=== PATIENT | male | born 1980 | race Caucasian/White ===

== ENCOUNTER 2019-07-08 19:14 | Emergency (ER) | payer SELFPAY ==
[~2019-07-08] VITALS: Ht 172.7 cm; Wt 75.0 kg
[2019-07-08 19:16] VITALS: BP 163/97
== END 2019-07-08 19:52 | disposition home or self-care (01) ==
LOC: ED 19:47
DX: K08.89 Other specified disorders of teeth and supporting structures (principal); F17.210 Nicotine dependence, cigarettes, uncomplicated; Z95.0 Presence of cardiac pacemaker
CPT/HCPCS: 99283